=== PATIENT | male | born 1945 | race Caucasian/White ===

== ENCOUNTER 2016-05-02 17:05 | Emergency (ER) | payer BC ==
[2016-05-02 17:24] VITALS: BP 103/69
--- NOTE | 2016-05-02 22:13 | UC ---
Lower Extremity/Ankle HPI - HPI Summary HPI Summary: pain left toe for a week. Pain and redness at IP joint. No prior similar pain. Makes him limp. Not so sore it keeps him awake. No injuries. - History of Current Complaint Chief Complaint: UCLowerExtremity Stated Complaint: LFT BIG TOE PAIN Time Seen by Provider: 05/02/16 17:40 Hx Obtained From: Patient, Family/Wage Hand - Onset/Duration: Gradual Onset, Lasting Weeks - 1 Severity Initially: Mild Severity Currently: Moderate Pain Intensity: 0 Pain Scale Used: 0-10 Numeric Aggravating Factor(s): Ambulation Alleviating Factor(s): Elevation - Risk Factors Gout Risk Factors: Negative DVT Risk Factors: Negative Septic Arthritis Risk Factor: Negative - Allergies/Home Medications Allergies/Adverse Reactions: Allergies Allergy/AdvReac Type Severity Reaction Status Date / Time No Known Allergies Allergy Verified 05/02/16 17:12 Home Medications: Home Medications Chlorthalidone TAB* [Hygroton TAB*] 25 mg PO DAILY 05/02/16 [History Confirmed 05/02/16] Divalproex Sodium [Depakote ER] 750 mg PO BEDTIME 05/02/16 [History Confirmed ] Levothyroxine TAB* [Synthroid TAB*] 25 mcg PO DAILY 05/02/16 [History Confirmed 05/02/16] Lisinopril TAB* [Prinivil TAB*] 10 mg PO DAILY 05/02/16 [History Confirmed 05/02] Naproxen TAB* [Naprosyn TAB*] 500 mg PO Q8H PRN 05/02/16 [History Confirmed ] Tamsulosin CAP* [Flomax CAP*] 0.4 mg PO DAILY 05/02/16 [History Confirmed ] PMH/Surg Hx/FS Hx/Imm Hx Endocrine History Of: Reports: Thyroid Disease Cardiovascular History Of: Reports: Hypertension - Surgical History Surgical History: Yes Surgery Procedure, Year, and Place: AV SHUNT, VARICOLECTOMY - Family History Known Family History: Positive: Hypertension - Social History Occupation: Employed Full-time Lives: With Family Alcohol Use: None Substance Use Type: None Smoking Status (MU): Never Smoked Tobacco Review of Systems Constitutional: Negative Skin: Other - reddened skin left IP joint great toe. MIldly tender to touch. Eyes: Negative ENT: Negative Respiratory: Negative Cardiovascular: Negative Gastrointestinal: Negative Genitourinary: Negative Motor: Negative Neurovascular: Negative Musculoskeletal: Arthralgia - pain on movement at left great toe IP joint Neurological: Negative Psychological: Negative All Other Systems Reviewed And Are Negative: Yes Physical Exam Triage Information Reviewed: Yes Appearance: Well-Appearing, No Pain Distress, Well-Nourished Vital Signs: Initial Vital Signs Temp 98.1 F 05/02/16 17:15 Pulse 80 05/02/16 17:15 Resp 18 05/02/16 17:15 BP 103/69 05/02/16 17:15 Pulse Ox 98 05/02/16 17:15 Vital Signs Reviewed: Yes Eye Exam: Normal ENT Exam: Normal Neck exam: Normal Respiratory Exam: Normal Cardiovascular Exam: Normal Musculoskeletal Exam: Other - pain, redness, tenderness left great toe dorsum IP joint Neurological Exam: Normal Psychological Exam: Normal Skin Exam: Normal Lower Extremity Course/Dx - Course Course Of Treatment: gout vs cellulitis - Differential Dx/Diagnosis Provider Diagnoses: cellulitis left great toe Discharge - Discharge Plan Condition: Stable Disposition: HOME Prescriptions: Indomethacin CAP* [Indocin CAP*] 50 mg PO TID PRN #30 cap PRN Reason: toe pain Sulfamethox/Trimethoprim DS* [Bactrim DS 800/160 TAB*] 1 tab PO BID #20 tab Patient Education Materials: Cellulitis (ED), Gout (ED) Referrals: Daniel Marmolejo MD [Primary Care Provider] -
== END 2016-05-02 18:01 | disposition home or self-care (01) ==
LOC: UCCORT 17:05
DX: L03.032 Cellulitis of left toe (principal); I10 Essential (primary) hypertension
CPT/HCPCS: 99212; G0463